=== PATIENT | female | born 1990 | race Caucasian/White ===

== ENCOUNTER 2023-10-18 18:09 | Emergency (ER) | payer BC, SELFPAY ==
[2023-10-18 18:18] VITALS: BP 147/95; PULSE 89; RESP 16; TEMP 37.1; O2SAT 100
--- NOTE | 2023-10-18 18:30 | RT.EKG_ITS ---
APPROVED REPORT Exam: Resting ECG Reason for Exam: dizziness Patient Location: E HR:70 bpm ECG Measurements Heart Rate 70 AXIS MO 131 P 26 QRSd 109 QRS 4 QT 402 T 15 QTc 432 Conclusion Sinus rhythm...normal P axis, V-rate 60- 99
[2023-10-18 19:02] LABS: Abs Immature Grans 0.05 10^3/uL (0.0-0.06); Absolute Basophil Count 0.03 10^3/uL (0.0-0.2); Absolute Lymphocyte Count 3.14 10^3/uL (1.2-3.4); Basophils % 0.2; Eosinophils % 0.1; HCT 45.2 % (36.0-46.0); HGB 14.8 g/dL (11.2-15.7); Immature Grans % 0.3; Lymphocytes % 21.6; MCH 27.8 pg (27.0-33.0); MCHC 32.7 % (32.0-36.0); MCV 85 fL (80-95); MPV 9.6 fL (8.0-11.0); Monocytes % 4.1; Neutrophils % 73.7; Platelet Count 374 10^3/uL (130-400); RBC 5.32 10^6/uL (3.93-5.22); RDW 13.9 % (11.7-14.6); RDW-SD 43.3 fL; WBC 14.52 10^3/uL (4.4-10.8)
[2023-10-18 19:03] LABS: Absolute Eosinophil Count 0.01 10^3/uL (0.0-0.7); Bilirubin Negative (Negative); Blood Negative (Negative); Clarity Clear (Clear); Glucose Negative (Negative); Ketones 40 mg/dL (Negative); Leukocyte Esterase Negative (Negative); Nitrite Negative (Negative); Specific Gravity 1.015 (1.005-1.025); Urobilinogen 0.2 mg/dL (Up to 0.2)
[2023-10-18 19:25] LABS: ALT 26 U/L (14-59); AST 21 U/L (15-37); Alkaline Phosphatase 145 U/L (46-116); Anion Gap 11.5 mmol/L (3-11); BUN 11 mg/dL (7-18); Bilirubin, Total 0.2 mg/dL (0.2-1.0); CO2 26.5 mmol/L (21.0-32.0); CREATININE 0.7 mg/dL (0.55-1.02); Calcium 8.6 mg/dL (8.5-10.1); Chloride 102 mmol/L (98-107); Estimated GFR 118.51 (mL/min/1.73m2); Glucose 87 mg/dL (74-106); Magnesium 1.8 mg/dL (1.8-2.4); Potassium 3.5 mmol/L (3.5-5.1); Sodium 140 mmol/L (136-145); TSH (W/Ref FT4) 1.13 uIU/mL (0.36-3.74); Total Protein 8.5 g/dL (6.4-8.2)
[2023-10-18] MEDS: Normal Saline 1,000 ML 1000 ML IV (19:31)
--- NOTE | 2023-10-18 19:44 | ED.GENADUL_ITS ---
Discharge Plan Disposition Patient Disposition: Home Discharge Details Clinical Impression: Otitis externa Primary Care Provider: Andie Bobby ED Provider: Leesa Ceja Home Meds and New Rx's Prescriptions: New ciprofloxacin HCl 0.2 % dropperette 5 drp otic (ear) BID 7 Days Qty: 14 0RF Continued CBD oil THC oil Probiotic 10 billion cell capsule 10,000 mmu cells PO DAILY Discharge Instructions Instructions: Otitis Externa (ED) Additional Instructions: Recommend using Afrin nasal spray for the next 3 days and Flonase daily for the next month Use the Cipro drops as prescribed, we do not have them in the emergency department so pick them up at the pharmacy tomorrow and instill them in your ear as prescribed Call scheduling at [facility] to schedule your MRI and then follow-up with ENT thereafter I am placing referral to [facility] neurology regarding your CTA Please return earlier should you have new or worsening complaints Referrals: Andie Bobby MD [Primary Care Provider] - 3 days HPI General Date/Time Provider Initiated Documentation: 10/18/23 18:10 . HPI Narrative: This 32-year-old female with history of Chiari malformation repair presents with report of recurrent ear infections since March on 4 antibiotics. Present today secondary to dizziness and fullness. States that she has an MRI ordered outpatient but has not been able to have it performed yet. ENT wanted to evaluate her Chiari malformation reportedly. Patient states she has had the symptoms for the past several months and that they have been worse in the past several weeks. She denies any dramatic change today. She denies any chest pain or shortness of breath. She denies any vision change. Denies chance of . Denies any current nausea and vomiting. Related Data Home Medications Medication Instructions Recorded Confirmed CBD oil 10/18/23 Lactobacillus acidophilus 10 10,000 mmu cells PO DAILY 10/18/23 10/18/23 billion cell capsule (Probiotic) THC oil 10/18/23 ciprofloxacin HCl 0.2 % ear drops 5 drp otic (ear) BID 7 days #14 ea 10/18/23 in a dropperette Previous Rx's Medication Instructions Recorded ciprofloxacin HCl 0.2 % ear drops 5 drp otic (ear) BID 7 days #14 ea 10/18/23 in a dropperette Allergies Allergy/AdvReac Type Severity Reaction Status Date / Time codeine Allergy Nausea Verified 10/18/23 18:14 General Stated Complaint: EarProblem CATHIE: 3 Course Vital Signs Vital signs: Vital Signs Temperature 37.1 C 10/18/23 18:18 Pulse 89 10/18/23 18:18 Respiratory Rate 16 10/18/23 18:18 Blood Pressure 147/95 H 10/18/23 18:18 Pulse Oximetry 100 10/18/23 18:18 Temperature 37.1 C 10/18/23 18:18 Temperature Source Temporal Artery Scan 10/18/23 18:18 Pulse 89 10/18/23 18:18 Respiratory Rate 16 10/18/23 18:18 Respiratory Effort Normal, Non-Labored 10/18/23 18:21 Blood Pressure 147/95 H 10/18/23 18:18 Blood Pressure Position Sitting 10/18/23 18:18 Pulse Oximetry 100 10/18/23 18:18 Oxygen Delivery Method Room Air 10/18/23 18:18 Oxygen Flow Rate 0 10/18/23 18:18 Pain Level 0 10/18/23 18:18 Lab/Test Results Lab/Test Results: Laboratory Tests Range/Units 10/18/23 18:54 WBC (4.4-10.8) 10^3/uL 14.52 H RBC (3.93-5.22) 10^6/uL 5.32 H Hgb (11.2-15.7) g/dL 14.8 Hct (36.0-46.0) % 45.2 MCV (80-95) fL 85 MCH (27.0-33.0) pg 27.8 MCHC (32.0-36.0) % 32.7 RDW (11.7-14.6) % 13.9 Plt Count (130-400) 10^3/uL 374 MPV (8.0-11.0) fL 9.6 Immature Gran % 0.3 Neutrophils % 73.7 Lymphocytes % 21.6 Monocytes % 4.1 Eosinophils % 0.1 Basophils % 0.2 Nucleated RBC % (0.0-0.3) % 0.0 Absolute Neutrophils (1.2-6.7) 10^3/uL 10.70 H Absolute Lymphocytes (1.2-3.4) 10^3/uL 3.14 Absolute Monocytes (0.1-0.8) 10^3/uL 0.60 Absolute Eosinophils (0.0-0.7) 10^3/uL 0.01 Absolute Basophils (0.0-0.2) 10^3/uL 0.03 Sodium (136-145) mmol/L 140 Potassium (3.5-5.1) mmol/L 3.5 Chloride (98-107) mmol/L 102 Carbon Dioxide (21.0-32.0) mmol/L 26.5 Anion Gap (3-11) mmol/L 11.5 H BUN (7-18) mg/dL 11 Creatinine (0.55-1.02) mg/dL 0.7 Est GFR (CKD-EPI 2020) (mL/min/1.73m2) 118.51 Glucose (74-106) mg/dL 87 Calcium (8.5-10.1) mg/dL 8.6 Magnesium (1.8-2.4) mg/dL 1.8 Total Bilirubin (0.2-1.0) mg/dL 0.2 AST (15-37) U/L 21 ALT (14-59) U/L 26 Alkaline Phosphatase (46-116) U/L 145 H Total Protein (6.4-8.2) g/dL 8.5 H Albumin (3.4-5.0) g/dL 4.0 TSH (0.36-3.74) uIU/mL 1.13 Urine Color (Yellow) Yellow Urine Clarity (Clear) Clear Urine pH (5-8) 6.0 Ur Specific [place] (1.005-1.025) 1.015 Urine Protein (Neg-Trace) mg/dL Negative Urine Ketones (Negative) mg/dL 40 H Urine Blood (Negative) Negative Urine Nitrite (Negative) Negative Urine Bilirubin (Negative) Negative Urine Urobilinogen (Up to 0.2) mg/dL 0.2 Ur Leukocyte Esterase (Negative) Negative Urine Glucose (Negative) mg/dL Negative POC- Test(urine) Negative Medical Decision Making This 32-year-old female with history of Chiari malformation presents with recurrent otalgia and pressure in her right ear, she saw ENT and they ordered outpatient MRI to be sure she did not have CSF behind her eardrum I think this is unlikely, patient has an otitis externa clinically, there is no evidence of obvious perforation at this time, no drainage in canal aside from white fullness and discharge to the canal, will treat with Cipro as patient does states she has a prior history of perforation CTA was ordered secondary to intermittent lightheadedness and nausea and pressure in her ear which does not show evidence of significant acute abnormality, she has a possible abnormal variant on her CTA that we will need reassessment by her neurosurgeon, she is referred back to them for assessment will need her outpatient MRI At this time I see no emergent reason to reach out to neurology and she is relatively asymptomatic with a nonfocal neurological exam A wick was placed and Cipro drops ordered Patient will call diagnostic imaging for follow-up with her MRI at [facility] Pupils equal round reactive to light and accommodation, ambulatory with steady gait, stable vitals Cranial nerves II through XII intact, negative pronator drift No mastoid tenderness, uvula midline, oropharynx patent Quality:SDOH Health Related Social Needs: No Data to Display PFSH All Active Problems (Updated 10/18/23 @ 21:58 by BABATUNDE Gill) Otitis externa (Acute) Medical History (Updated 10/18/23 @ 21:58 by BABATUNDE Gill) Encounter for prophylactic removal of fallopian tube Postoperative nausea and vomiting Dysuria Verruca plantaris Thoracic back pain Spina bifida Restless leg syndrome Psoriasis History of prediabetes Obstructive sleep apnea Obesity Motion sickness Leukocytosis Hidradenitis suppurativa Generalized anxiety disorder Fatigue Dysthymia Dizziness Diarrhea Daytime somnolence Compression of brain Clostridioides difficile infection Claustrophobia Chronic lower back pain Chiari malformation type I Anemia Alkaline phosphatase raised Acne Surgical History (Updated 08/10/22 @ 15:34 by Karla Trivedi) [place] teeth extracted History of anterior colporrhaphy Status post craniectomy Family History (Updated 08/10/22 @ 15:36 by Karla Trivedi) Mother Hypertension Diabetes Father Diabetes Social History (Updated 08/10/22 @ 15:35 by Karla Trivedi) Smoking/Tobacco Use Status: Never Smoking risk assessment performed?: Yes Alcohol Intake: current Details: 1-2 TIMES PER YEAR Substance use type: marijuana Housing: house Do you feel safe at home: Yes Do you feel safe in your relationship?: Yes
[2023-10-18] MEDS: Omnipaque 350 MG/ML 100 ML BTL IJ (19:47)
[2023-10-18] MEDS: Normal Saline - Diluent 50 ML VIAL IJ (19:47)
[2023-10-18] MEDS: Normal Saline Flush 10 ML SYR IVP (19:48)
--- NOTE | 2023-10-18 20:35 | DI.CT_ITS ---
Exam(s) CT BRAIN NECK CTA EXAM: CT BRAIN NECK CTA CLINICAL HISTORY: chiari repair, ear pain, recurrent pressure, dizzy. TECHNIQUE: Imaging Protocol: Axial CT angiography was performed with multi-slice acquisition and mu lti-planar and MIP reconstructions. CONTRAST MATERIAL: Intravenous: Omnipaque 350 Contrast volume:100 ml COMPARISON: No exams were available for comparison FINDINGS: CT Head W/O and W contrast: Ventricles and Extra axial spaces: Normal in size and morphology for the patient's age. Hemorrhage: None. Cerebral parenchyma: No evidence of acute infarct or mass. Midline shift: None. Brainstem/Cerebellum: No acute findings. Low lying tonsils. . Calvarium: Craniotomy in the posterior fossa related to Chiari malformation repair. Visualized Paranasal sinuses/Mastoids: Clear. Soft Tissues: Unremarkable. Enhancement: Normal. CTA Brain W: Internal Carotid Arteries: Petrous: Normal. Cavernous: Normal. Cerebral: Normal. Middle Cerebral Arteries: Right: No aneurysm, occlusion or significant stenosis. Dominant right A1 segment. Left: No aneurysm, occlusion or significant stenosis. Hypoplastic A1 segment, anatomic variant. Anterior Cerebral Arteries: Right: No aneurysm, occlusion or significant stenosis. Left: No aneurysm, occlusion or significant stenosis. Posterior cerebral Arteries: Right: No aneurysm, occlusion or significant stenosis. Left: Persistent origin with hypoplastic P1 segment, normal variant. No aneurysm, occlusion or significant stenosis. Vertebral Arteries: Right: No aneurysm, occlusion or significant stenosis. Variant origin of the PICA from the distal V3 segment coursing inferiorly to level of the C2 lamina. Left: No aneurysm, occlusion or significant stenosis. Variant origin of the PICA from the distal V3 segment coursing inferiorly to level of the C2 lamina. Basilar Artery: No aneurysm, occlusion or significant stenosis. CTA Neck W: Common Carotid: Right: No dissection, occlusion or significant stenosis. Left: No dissection, occlusion or significant stenosis. External Carotid: Right: No dissection, occlusion or significant stenosis. Left: No dissection, occlusion or significant stenosis. Internal Carotid: Right: No dissection, occlusion or significant stenosis. Left: No dissection, occlusion or significant stenosis. Vertebral Artery: Right: No dissection, occlusion or significant stenosis. Left: No dissection, occlusion or significant stenosis. Lung Apices: Normal. Bones: No acute abnormality. Soft Tissues: Normal. IMPRESSION: 1. CTA brain: No evidence of aneurysm, occlusion or stenosis. Vertebral arteries: Bilateral variant origin of the PICA from the distal V3 segment coursing inferiorly to level of the C2 lamina. 2. Head CT: Occipital craniectomy for Chiari 1 malformation. No evidence of mass effect. Low lying tonsils. 3. CTA neck: Normal CTA examination of the neck. RADIATION DOSE DELIVERED: 1,876.95mGy.cm Total DLP DATA REPOSITORY: All CT scans at this facility are submitted to the National Radiology Data Registry (NRDR) Dose Index Registry (DIR) with the [employer] ([employer]). RADIATION OPTIMIZATION: All CT scans at this facility use at least one of these dose optimization te chniques: automated exposure control; mA and/or kV adjustment per patient size (includes targeted exa ms where dose is matched to clinical indication); or iterative reconstruction.
--- NOTE | 2023-10-18 21:21 | DI.VRAD_ITS ---
PROCEDURE INFORMATION: Exam: CTA Head Without And With Contrast, Arteriography Exam date and time: 10/18/2023 7:51 PM Age: 32 years old Clinical indication: Dizziness and giddiness; Prior surgery; Surgery date: 6+ months; Patient HX: Chiari repair, ear pain, recurrent pressure, dizzy TECHNIQUE: Imaging protocol: Computed tomographic angiography of the head without and with contrast. Exam focused on the arteries. 3D rendering (Not supervised by radiologist): MIP and/or 3D reconstructed images were created by the technologist. Radiation optimization: All CT scans at this facility use at least one of these dose optimization techniques: automated exposure control; mA and/or kV adjustment per patient size (includes targeted exams where dose is matched to clinical indication); or iterative reconstruction. Contrast material: OMNIPAQUE 350; Contrast volume: 85 ml; Contrast route: INTRAVENOUS (IV); COMPARISON: No relevant prior studies available. FINDINGS: ANTERIOR CIRCULATION: Right internal carotid artery: The right ICA petrous segment is unremarkable. Right ICA cavernous segment is unremarkable. The right ICA supraclinoid segment is unremarkable. Right middle cerebral artery: Unremarkable. No occlusion or significant stenosis. No aneurysm. Right anterior cerebral artery: Dominant right A1 segment. No occlusion or significant stenosis. No aneurysm. The anterior communicating artery is unremarkable. Left internal carotid artery: The left ICA petrous segment is unremarkable. Left ICA cavernous segment is unremarkable. The left ICA supraclinoid segment is unremarkable. Left middle cerebral artery: Unremarkable. No occlusion or significant stenosis. No aneurysm. Left anterior cerebral artery: Small/hypoplastic left A1 segment, anatomic variant. No occlusion or significant stenosis. No aneurysm. POSTERIOR CIRCULATION: Right vertebral artery: No occlusion or significant stenosis. No aneurysm. Right PICA is patent, with anatomic variant origin from the distal V3 segment and atypical inferior course in the dorsal thecal sac to the level of the C2 lamina before heading superiorly to supply the cerebellum. No aneurysm, stenosis, or occlusion. Left vertebral artery: No occlusion or significant stenosis. No aneurysm. Left PICA is patent, with anatomic variant origin from the distal V3 segment and atypical inferior course in the dorsal thecal sac to the level of the C2 lamina before heading superiorly to supply the cerebellum. No aneurysm, stenosis, or occlusion. Basilar artery: Unremarkable. No occlusion or significant stenosis. No aneurysm. Right posterior cerebral artery: Unremarkable. No occlusion or significant stenosis. No aneurysm. Left posterior cerebral artery: Normal variant persistent origin with hypoplastic left P1 segment. No occlusion or significant stenosis. No aneurysm. Superior sagittal sinus: The dural venous sinuses and major cortical veins enhance appropriately without evidence of thrombosis. HEAD: Brain: The IACs are grossly normal. No extra-axial fluid collections. Low-lying cerebellar tonsils consistent with clinically described Chiari 1 malformation. No evidence of acute intracranial hemorrhage. Cerebral/cerebellar herring-white differentiation is well maintained. No CT evidence of large territory acute or subacute intracranial ischemia/infarct. No intracranial mass lesions. 4 mm prominent perivascular space versus neuro epithelial cyst in the right mesial temporal distribution incidentally noted. No midline shift or herniation. No enhancing brain lesions. Cerebral ventricles: Ventricles normal. Pituitary gland and sella: The sella is grossly normal. Bones/joints: No acute osseous abnormalities. Prior suboccipital craniectomy noted. Orbital cavities: Visualized orbital contents demonstrate no acute abnormality. Paranasal sinuses: Visualized paranasal sinuses are clear. Mastoid air cells: Visualized mastoid air cells are clear. Soft tissues: The scalp and visualized soft tissues demonstrate no acute abnormality. IMPRESSION: 1. No evidence of large vessel occlusion or significant stenosis. No evidence of arterial dissection or aneurysm/pseudoaneurysm. 2. Low-lying cerebellar tonsils consistent with clinically described Chiari 1 malformation noted, with prior suboccipital craniectomy. 3. Both the right and left PICA demonstrate a variant proximal origination from the distal V3 segment, and an atypical low-lying course in the dorsal thecal sac extending down to the level of the C2 lamina before coursing superiorly to the cerebellum. This may predispose to positional vascular compression with neck extension, correlate clinically. PROCEDURE INFORMATION: Exam: CTA Neck Without And With Contrast Exam date and time: 10/18/2023 7:51 PM Age: 32 years old Clinical indication: Dizziness and giddiness; Prior surgery; Surgery date: 6+ months; Patient HX: Chiari repair, ear pain, recurrent pressure, dizzy TECHNIQUE: Imaging protocol: Computed tomographic angiography of the neck without and with contrast. Exam focused on the cervical segments of the vasculature. 3D rendering (Not supervised by radiologist): MIP and/or 3D reconstructed images were created by the technologist. Radiation optimization: All CT scans at this facility use at least one of these dose optimization techniques: automated exposure control; mA and/or kV adjustment per patient size (includes targeted exams where dose is matched to clinical indication); or iterative reconstruction. Contrast material: OMNIPAQUE 350; Contrast volume: 85 ml; Contrast route: INTRAVENOUS (IV); COMPARISON: CT SPINE LS WO CONTRAST 08/02/2022 12:20 PM FINDINGS: Right common carotid artery: Normal. No stenosis. No dissection or occlusion. Right internal carotid artery: Mild proximal tortuosity. No stenosis. No dissection or occlusion. Right external carotid artery: Normal. No stenosis. No dissection or occlusion. Left common carotid artery: Normal. No stenosis. No dissection or occlusion. Left internal carotid artery: Mild proximal segment tortuosity. No stenosis. No dissection or occlusion. Left external carotid artery: Normal. No stenosis. No dissection or occlusion. Right vertebral artery: No stenosis. No dissection or occlusion. Left vertebral artery: No stenosis. No dissection or occlusion. Brachiocephalic artery: The brachiocephalic artery is unremarkable. Right subclavian artery: The right subclavian artery is unremarkable. Left subclavian artery: The left subclavian artery is unremarkable. Aorta: The visualized aortic arch is unremarkable. Thyroid: The thyroid gland is unremarkable. Soft tissues: No significant soft tissue swelling or hematoma. Bones/joints: No acute osseous abnormalities are identified. Lungs: The visualized pulmonary apices are clear. IMPRESSION: No evidence of arterial stenosis, occlusion, dissection, or aneurysm/pseudoaneurysm. REFERENCES: NASCET CRITERIA. The degree of stenosis in the cervical segment of the internal carotid artery is based on NASCET criteria. Normal is no stenosis. Mild is less than 50% stenosis. Moderate is 50-69% stenosis. Severe is 70% to 99% stenosis. Total occlusion is no detectable patent lumen. Dictated and Authenticated by: Kana Chavez MD. Ordering:GAURI Landers MD
[2023-10-18 22:24] VITALS: BP 132/90; PULSE 72; RESP 14; TEMP 36.7; O2SAT 99
--- NOTE | 2023-10-19 03:19 | NUR.NOTE ---
Referral to Care Management to refer to [facility] to f/u in a week or so, abnormal CTA finding.Nursing Note:
--- NOTE | 2023-10-19 10:14 | NUR.NOTE ---
Nursing Note: Patient called stating that the pharmacy did not receive the prescription sent to them last night. I called the pharmacy and they stated that they did receive it but did not have the antibiotic that was prescribed for and asked if we wanted to change it. Carlota Rush NP gave a verbal to the pharmacist to change from Cipro 0.2% ear drops to Cipro 0.3% ear drops with the same directions of the original prescription. I called the patient and let her know that the prescription was figured out and the pharmacy was actively working to fill it for her.
--- NOTE | 2023-10-21 09:33 | NUR.NOTE ---
Patient called yesterday asking about ear culture and called again today. Dr. Ha is speaking with the patient about her results. Nursing Note:
--- NOTE | 2023-10-21 09:40 | W.ED.FU ---
Date of service: 10/21/23 Time of Service: 09:40 Follow Up Plan: Patient called back looking for culture results. Culture results came back with mixed gram-positive karo. Staph and strep are certainly on the differential but this certainly does not focus the differential at this stage as it could also very well just to be a contaminant. Patient does have an outpatient MRI scheduled for further evaluation of potential CSF leak. She is using the Cipro drops as prescribed. She is scheduled to follow-up with [facility] ENT. Patient otherwise feels comfortable. No other questions or concerns.
[2023-11-22 11:43] LABS: Fungal Culture & Smear See Comments
== END 2023-10-18 22:25 | disposition home or self-care (01) ==
PROVIDERS: Emergency Provider Physician Assistant; PCP Physician Assistant
DX: H60.501 Unspecified acute noninfective otitis externa, right ear (principal)
CPT/HCPCS: 70496; 70498; 80053; 81025; 87077; 87102; 87206; 93005; 96360; 99285; 81003; 83735; 84443; 85025; 87070; 87186; 87205; 93010; 99284; J3490